=== PATIENT | female | born 1955 | race Caucasian/White ===

== ENCOUNTER → 2016-08-25 | Outpatient (CLI) | payer OTHER ==
[~2016-08-25] MED LIST: AMBIEN 5MG TABLE5 MG PO; AZO-CRANBERRY450 MG PO; BIOTIN5000 MCG PO; BUMEX; BUMEX 1MG TA1 MG/TA1 PO; BUMEX2 MG PO; CYMBALTA 60MG60 MG PO; FENTANYL 50MCG TD; FENTANYL 50MCG TP; FENTANYL37.5 MCG/H TD; FLAX OIL1000 MG PO; HIPREX PO; K DUR; K-DUR20 MEQ PO; LISINOPRIL2.5 MG PO; MASON NATURAL1200 MG PO; MOTRIN 800800 MG/TAB PO; PERCOCET 325 MG1 TAB PO; PERCOCET 5/321 UDTAB PO; PRINIVIL5 MG PO; SYNTHROID0.125 MG/T PO; TURMERIC500 MG PO; VALIUM 5MG T5 MG/TAB PO; VITAMIN C500 MG PO; ZETIA 10MG TAB10 MG PO; ZOCOR 40MG40 MG PO; ZOLOFT100 MG PO
== END ==
LOC: MHCPAIN 10:35
DX: G89.29 Other chronic pain (principal); M47.27 Other spondylosis with radiculopathy, lumbosacral region; M53.3 Sacrococcygeal disorders, not elsewhere classified; M96.1 Postlaminectomy syndrome, not elsewhere classified; M54.2 Cervicalgia; F11.20 Opioid dependence, uncomplicated
CPT/HCPCS: G0463

== ENCOUNTER → 2016-09-07 | Outpatient (CLI) | payer OTHER | LOC: MHCPAIN 08:03 | DX: M51.36 Other intervertebral disc degeneration, lumbar region (principal); M96.1 Postlaminectomy syndrome, not elsewhere classified | CPT/HCPCS: J1100; Q9967 ==

== ENCOUNTER 2016-09-11 08:19 | Outpatient (CLI) | payer OTHER ==
[~2016-09-11] VITALS: Ht 154.9 cm; Wt 98.7 kg
[~2016-09-11 08:19] MED LIST changes: -AMBIEN 5MG TABLE5 MG PO; -AZO-CRANBERRY450 MG PO; -BIOTIN5000 MCG PO; -BUMEX 1MG TA1 MG/TA1 PO; -BUMEX2 MG PO; -CYMBALTA 60MG60 MG PO; -FENTANYL 50MCG TD; -FENTANYL37.5 MCG/H TD; -FLAX OIL1000 MG PO; -HIPREX PO; -K-DUR20 MEQ PO; -MASON NATURAL1200 MG PO; -PERCOCET 325 MG1 TAB PO; -PRINIVIL5 MG PO; -TURMERIC500 MG PO; -VITAMIN C500 MG PO; -ZETIA 10MG TAB10 MG PO; -ZOCOR 40MG40 MG PO
[2016-09-11] MEDS ORDERED: PRINIVIL5 MG PO (08:34)
[2016-09-11] MEDS ORDERED: BUMEX 1MG TA1 MG/TA1 PO (08:35)
[2016-09-11] MEDS ORDERED: BUMEX2 MG PO (08:36)
[2016-09-11] MEDS ORDERED: K-DUR20 MEQ PO ×2 (08:36→08:37)
[2016-09-11] MEDS ORDERED: ZETIA 10MG TAB10 MG PO (08:37)
[2016-09-11] MEDS ORDERED: ZOCOR 40MG40 MG PO (08:38)
[2016-09-11] MEDS ORDERED: HIPREX PO (08:39)
[2016-09-11] MEDS ORDERED: FENTANYL 50MCG TD (08:39)
[2016-09-11] MEDS ORDERED: CYMBALTA 60MG60 MG PO (08:40)
[2016-09-11] MEDS ORDERED: AMBIEN 5MG TABLE5 MG PO (08:41)
[2016-09-11] MEDS ORDERED: PERCOCET 325 MG1 TAB PO (08:41)
[2016-09-11] MEDS ORDERED: VITAMIN C500 MG PO (08:42)
[2016-09-11] MEDS ORDERED: AZO-CRANBERRY450 MG PO (08:42)
[2016-09-11] MEDS ORDERED: FLAX OIL1000 MG PO (08:43)
[2016-09-11] MEDS ORDERED: MASON NATURAL1200 MG PO (08:43)
[2016-09-11] MEDS ORDERED: TURMERIC500 MG PO (08:44)
[2016-09-11 08:45] VITALS: BP 144/89; PULSE 73
[2016-09-11] MEDS ORDERED: BIOTIN5000 MCG PO (08:45)
[2016-09-11 10:06] VITALS: BP 130/45; PULSE 83
[2016-09-11 10:20] VITALS: BP 135/73; PULSE 69
[2016-09-11 11:00] VITALS: BP 127/70; PULSE 78
[2016-09-11 11:30] VITALS: BP 129/70; PULSE 90
[2016-09-11 11:44] VITALS: BP 135/68; PULSE 78
== END 2016-09-11 12:12 | disposition home or self-care (01) ==
LOC: COL.RAD 08:19
DX: M96.1 Postlaminectomy syndrome, not elsewhere classified (principal); M54.2 Cervicalgia; M54.6 Pain in thoracic spine; I25.10 Atherosclerotic heart disease of native coronary artery without angina pectoris; I10 Essential (primary) hypertension; E78.5 Hyperlipidemia, unspecified; Z79.899 Other long term (current) drug therapy; Z79.82 Long term (current) use of aspirin
CPT/HCPCS: Q9967

== ENCOUNTER 2016-09-26 08:32 | Outpatient (CLI) | payer OTHER ==
[~2016-09-26] VITALS: Ht 154.9 cm; Wt 97.9 kg
[2016-09-26] VITALS (8 sets, daily range): BP systolic 101–132; BP diastolic 50–79; PULSE 58–78
[~2016-09-26 08:32] MED LIST changes: +AMBIEN 5MG TABLE5 MG PO; +AZO-CRANBERRY450 MG PO; +BIOTIN5000 MCG PO; +BUMEX 1MG TA1 MG/TA1 PO; +BUMEX2 MG PO; +CYMBALTA 60MG60 MG PO; +FENTANYL 50MCG TD; +FLAX OIL1000 MG PO; +HIPREX PO; +K-DUR20 MEQ PO; +MASON NATURAL1200 MG PO; +PERCOCET 325 MG1 TAB PO; +PRINIVIL5 MG PO; +TURMERIC500 MG PO; +VITAMIN C500 MG PO; +ZETIA 10MG TAB10 MG PO; +ZOCOR 40MG40 MG PO
[2016-09-26] MEDS ORDERED: FENTANYL37.5 MCG/H TD (08:48)
== END 2016-09-26 11:32 | disposition home or self-care (01) ==
LOC: COL.RAD 08:32
DX: M96.1 Postlaminectomy syndrome, not elsewhere classified (principal); M54.2 Cervicalgia; M48.06 Spinal stenosis, lumbar region
CPT/HCPCS: Q9965

== ENCOUNTER → 2016-10-02 | Outpatient (CLI) | payer OTHER ==
[~2016-10-02] MED LIST changes: +FENTANYL37.5 MCG/H TD
== END ==
LOC: MHCPAIN 12:26
DX: G89.29 Other chronic pain (principal); M47.817 Spondylosis without myelopathy or radiculopathy, lumbosacral region; M54.16 Radiculopathy, lumbar region; M53.3 Sacrococcygeal disorders, not elsewhere classified; M50.90 Cervical disc disorder, unspecified, unspecified cervical region; M96.1 Postlaminectomy syndrome, not elsewhere classified
CPT/HCPCS: G0463

== ENCOUNTER → 2016-11-03 | Outpatient (CLI) | payer OTHER | LOC: MHCPAIN 12:30 | DX: G89.29 Other chronic pain (principal); M47.817 Spondylosis without myelopathy or radiculopathy, lumbosacral region; M54.16 Radiculopathy, lumbar region; M53.3 Sacrococcygeal disorders, not elsewhere classified; M96.1 Postlaminectomy syndrome, not elsewhere classified | CPT/HCPCS: G0463 ==

== ENCOUNTER 2016-11-24 16:45 | Outpatient (RCR) | payer OTHER | END 2016-11-30 13:55 | disposition home or self-care (01) | LOC: WSPT 16:45 | DX: M47.27 Other spondylosis with radiculopathy, lumbosacral region (principal); M53.3 Sacrococcygeal disorders, not elsewhere classified; M96.1 Postlaminectomy syndrome, not elsewhere classified; M51.16 Intervertebral disc disorders with radiculopathy, lumbar region ==

== ENCOUNTER → 2016-12-04 | Outpatient (CLI) | payer OTHER | LOC: MHCPAIN 10:50 | DX: G89.29 Other chronic pain (principal); M47.817 Spondylosis without myelopathy or radiculopathy, lumbosacral region; M54.16 Radiculopathy, lumbar region; M53.3 Sacrococcygeal disorders, not elsewhere classified; M96.1 Postlaminectomy syndrome, not elsewhere classified | CPT/HCPCS: G0463 ==

== ENCOUNTER → 2017-01-08 | Outpatient (CLI) | payer OTHER | LOC: MHCPAIN 11:11 | DX: G89.29 Other chronic pain (principal); M47.27 Other spondylosis with radiculopathy, lumbosacral region; M53.3 Sacrococcygeal disorders, not elsewhere classified; M96.1 Postlaminectomy syndrome, not elsewhere classified; Z79.82 Long term (current) use of aspirin | CPT/HCPCS: G0463 ==

== ENCOUNTER → 2017-02-12 | Outpatient (CLI) | payer OTHER | LOC: MHCPAIN 11:31 | DX: G89.29 Other chronic pain (principal); M47.27 Other spondylosis with radiculopathy, lumbosacral region; M53.3 Sacrococcygeal disorders, not elsewhere classified; M96.1 Postlaminectomy syndrome, not elsewhere classified; Z79.82 Long term (current) use of aspirin | CPT/HCPCS: G0463 ==

== ENCOUNTER → 2017-02-28 | Outpatient (REF) | LOC: ZLAB.WCH 18:11 | DX: Z12.31 Encounter for screening mammogram for malignant neoplasm of breast (principal) ==

== ENCOUNTER → 2017-03-12 | Outpatient (REF) ==
[2017-03-12 18:52] LABS: C-REACTIVE PROTEIN 1.4 mg/dL (0.0-0.9)
[2017-03-12 18:55] LABS: VANCOMYCIN TROUGH 17.14 ug/mL (7.00-20.00)
== END ==
LOC: ZLAB.WCH 18:31
PROVIDERS: Internal Medicine Infectious Disease
DX: Z01.89 Encounter for other specified special examinations (principal)

== ENCOUNTER → 2017-03-12 | Outpatient (CLI) | payer OTHER | LOC: MHCPAIN 13:03 | DX: G89.29 Other chronic pain (principal); M47.27 Other spondylosis with radiculopathy, lumbosacral region; M96.1 Postlaminectomy syndrome, not elsewhere classified | CPT/HCPCS: G0463 ==

== ENCOUNTER → 2017-03-15 | Outpatient (REF) ==
[2017-03-15 18:35] LABS: C-REACTIVE PROTEIN 3.2 mg/dL (0.0-0.9)
[2017-03-15 18:38] LABS: VANCOMYCIN TROUGH 15.71 ug/mL (7.00-20.00)
== END ==
LOC: ZLAB.WCH 18:09
PROVIDERS: Internal Medicine Infectious Disease
DX: Z01.89 Encounter for other specified special examinations (principal)

== ENCOUNTER → 2017-03-19 | Outpatient (REF) ==
[2017-03-19 18:56] LABS: C-REACTIVE PROTEIN 4.1 mg/dL (0.0-0.9)
[2017-03-19 19:31] LABS: VANCOMYCIN TROUGH 21.15 ug/mL (7.00-20.00)
== END ==
LOC: ZLAB.WCH 18:16
PROVIDERS: Internal Medicine Infectious Disease
DX: Z01.89 Encounter for other specified special examinations (principal)

== ENCOUNTER → 2017-03-26 | Outpatient (REF) ==
[2017-03-26 17:46] LABS: VANCOMYCIN TROUGH 14.51 ug/mL (7.00-20.00)
[2017-03-26 17:48] LABS: C-REACTIVE PROTEIN 0.5 mg/dL (0.0-0.9)
== END ==
LOC: ZLAB.WCH 17:28
PROVIDERS: Internal Medicine Infectious Disease
DX: Z01.89 Encounter for other specified special examinations (principal)

== ENCOUNTER → 2017-04-02 | Outpatient (REF) ==
[2017-04-02 18:59] LABS: C-REACTIVE PROTEIN 0.7 mg/dL (0.0-0.9)
[2017-04-02 19:19] LABS: VANCOMYCIN TROUGH 21.74 ug/mL (7.00-20.00)
== END ==
LOC: ZLAB.WCH 18:20
PROVIDERS: Internal Medicine Infectious Disease
DX: Z01.89 Encounter for other specified special examinations (principal)

== ENCOUNTER → 2017-04-04 | Outpatient (REF) | LOC: ZLAB.WCH 18:08 | DX: Z01.89 Encounter for other specified special examinations (principal) ==

== ENCOUNTER → 2017-04-09 | Outpatient (REF) ==
[2017-04-09 14:51] LABS: VANCOMYCIN TROUGH 17.64 ug/mL (7.00-20.00)
[2017-04-09 14:53] LABS: C-REACTIVE PROTEIN < 0.5 mg/dL (0.0-0.9)
== END ==
LOC: ZLAB.WCH 14:27
PROVIDERS: Internal Medicine Infectious Disease
DX: Z01.89 Encounter for other specified special examinations (principal)

== ENCOUNTER → 2017-04-11 | Outpatient (CLI) | payer OTHER | LOC: MHCPAIN 12:52 | DX: G89.29 Other chronic pain (principal); M47.27 Other spondylosis with radiculopathy, lumbosacral region; M53.3 Sacrococcygeal disorders, not elsewhere classified; M96.1 Postlaminectomy syndrome, not elsewhere classified | CPT/HCPCS: G0463 ==

== ENCOUNTER → 2017-04-16 | Outpatient (REF) ==
[2017-04-16 16:06] LABS: C-REACTIVE PROTEIN < 0.5 mg/dL (0.0-0.9)
[2017-04-16 16:08] LABS: VANCOMYCIN TROUGH 16.81 ug/mL (7.00-20.00)
== END ==
LOC: ZLAB.WCH 15:19
PROVIDERS: Internal Medicine Infectious Disease
DX: Z01.89 Encounter for other specified special examinations (principal)

== ENCOUNTER → 2017-04-24 | Outpatient (REF) ==
[2017-04-24 19:02] LABS: VANCOMYCIN TROUGH 18.31 ug/mL (7.00-20.00)
[2017-04-24 19:34] LABS: C-REACTIVE PROTEIN < 0.5 mg/dL (0.0-0.9)
== END ==
LOC: ZLAB.WCH 18:12
PROVIDERS: Internal Medicine Infectious Disease
DX: Z01.89 Encounter for other specified special examinations (principal)

== ENCOUNTER → 2017-05-21 | Outpatient (CLI) | payer OTHER | LOC: MHCPAIN 11:56 | DX: G89.29 Other chronic pain (principal); M47.27 Other spondylosis with radiculopathy, lumbosacral region; M53.3 Sacrococcygeal disorders, not elsewhere classified; M96.1 Postlaminectomy syndrome, not elsewhere classified | CPT/HCPCS: G0463 ==

== ENCOUNTER → 2017-06-20 | Outpatient (CLI) | payer OTHER | LOC: MHCPAIN 14:55 | DX: G89.29 Other chronic pain (principal); M47.817 Spondylosis without myelopathy or radiculopathy, lumbosacral region; M54.16 Radiculopathy, lumbar region; M53.3 Sacrococcygeal disorders, not elsewhere classified; M96.1 Postlaminectomy syndrome, not elsewhere classified | CPT/HCPCS: G0463 ==

== ENCOUNTER → 2017-08-20 | Outpatient (CLI) | payer OTHER | LOC: MHCPAIN 14:49 | DX: G89.29 Other chronic pain (principal); M47.817 Spondylosis without myelopathy or radiculopathy, lumbosacral region; M54.16 Radiculopathy, lumbar region; M53.3 Sacrococcygeal disorders, not elsewhere classified; M96.1 Postlaminectomy syndrome, not elsewhere classified | CPT/HCPCS: G0463 ==

== ENCOUNTER → 2018-02-20 | Outpatient (CLI) | payer OTHER | LOC: MHCPAIN 15:18 | DX: G89.29 Other chronic pain (principal); M47.817 Spondylosis without myelopathy or radiculopathy, lumbosacral region; M54.16 Radiculopathy, lumbar region; M53.3 Sacrococcygeal disorders, not elsewhere classified; M96.1 Postlaminectomy syndrome, not elsewhere classified | CPT/HCPCS: G0463 ==

== ENCOUNTER → 2018-04-02 | Outpatient (CLI) | payer OTHER | LOC: MHCPAIN 10:11 | DX: G89.29 Other chronic pain (principal); M47.817 Spondylosis without myelopathy or radiculopathy, lumbosacral region; M54.16 Radiculopathy, lumbar region; M53.3 Sacrococcygeal disorders, not elsewhere classified; M96.1 Postlaminectomy syndrome, not elsewhere classified | CPT/HCPCS: G0463 ==

== ENCOUNTER → 2018-04-09 | Outpatient (CLI) | payer OTHER | LOC: MHCPAIN 14:00 | DX: M79.18 Myalgia, other site (principal) | CPT/HCPCS: J1040 ==

== ENCOUNTER → 2018-05-22 | Outpatient (CLI) | payer OTHER | LOC: MHCPAIN 15:25 | DX: G89.29 Other chronic pain (principal); M47.817 Spondylosis without myelopathy or radiculopathy, lumbosacral region; M54.16 Radiculopathy, lumbar region; M53.3 Sacrococcygeal disorders, not elsewhere classified; M96.1 Postlaminectomy syndrome, not elsewhere classified | CPT/HCPCS: G0463 ==

== ENCOUNTER → 2018-08-28 | Outpatient (CLI) | payer OTHER | LOC: MHCPAIN 13:57 | DX: G89.29 Other chronic pain (principal); M47.817 Spondylosis without myelopathy or radiculopathy, lumbosacral region; M54.16 Radiculopathy, lumbar region; M53.3 Sacrococcygeal disorders, not elsewhere classified; M96.1 Postlaminectomy syndrome, not elsewhere classified | CPT/HCPCS: G0463 ==

== ENCOUNTER → 2018-11-26 | Outpatient (CLI) | payer OTHER | LOC: MHCPAIN 15:25 | DX: G89.29 Other chronic pain (principal); M47.817 Spondylosis without myelopathy or radiculopathy, lumbosacral region; M54.16 Radiculopathy, lumbar region; M53.3 Sacrococcygeal disorders, not elsewhere classified; M96.1 Postlaminectomy syndrome, not elsewhere classified | CPT/HCPCS: G0463 ==

== ENCOUNTER → 2019-02-18 | Outpatient (CLI) | payer OTHER, MEDICARE | LOC: MHCPAIN 15:39 | DX: G89.29 Other chronic pain (principal); M47.817 Spondylosis without myelopathy or radiculopathy, lumbosacral region; M54.16 Radiculopathy, lumbar region; M53.3 Sacrococcygeal disorders, not elsewhere classified; M96.1 Postlaminectomy syndrome, not elsewhere classified | CPT/HCPCS: G0463 ==

== ENCOUNTER → 2019-05-28 | Outpatient (CLI) | payer MEDICARE | LOC: MHCPAIN 13:29 | DX: M47.817 Spondylosis without myelopathy or radiculopathy, lumbosacral region (principal); M54.16 Radiculopathy, lumbar region | CPT/HCPCS: G0463 ==

== ENCOUNTER → 2019-05-29 | Outpatient (CLI) | payer MEDICARE | LOC: MHCPAIN 14:27 | DX: M96.1 Postlaminectomy syndrome, not elsewhere classified (principal); M54.17 Radiculopathy, lumbosacral region | CPT/HCPCS: J1100; Q9967 ==

== ENCOUNTER → 2019-07-03 | Outpatient (CLI) | payer OTHER | LOC: MHCPAIN 15:01 | DX: M99.04 Segmental and somatic dysfunction of sacral region (principal) | CPT/HCPCS: G0260; J1040; Q9967 ==

== ENCOUNTER → 2019-10-01 | Outpatient (CLI) | payer MEDICARE | LOC: MHCPAIN 13:56 | DX: M47.817 Spondylosis without myelopathy or radiculopathy, lumbosacral region (principal); M53.3 Sacrococcygeal disorders, not elsewhere classified; M54.5 Low back pain; M96.1 Postlaminectomy syndrome, not elsewhere classified; G89.29 Other chronic pain | CPT/HCPCS: G0463 ==

== ENCOUNTER → 2020-01-20 | Outpatient (CLI) | payer MEDICARE | LOC: MHCPAIN 14:41 | DX: M47.817 Spondylosis without myelopathy or radiculopathy, lumbosacral region (principal); M54.5 Low back pain; M96.1 Postlaminectomy syndrome, not elsewhere classified; M53.3 Sacrococcygeal disorders, not elsewhere classified; M54.16 Radiculopathy, lumbar region | CPT/HCPCS: G0463 ==

== ENCOUNTER → 2020-01-29 | Outpatient (CLI) | payer MEDICARE | LOC: MHCPAIN 13:23 | DX: M47.817 Spondylosis without myelopathy or radiculopathy, lumbosacral region (principal); M96.1 Postlaminectomy syndrome, not elsewhere classified; M54.16 Radiculopathy, lumbar region | CPT/HCPCS: J1100; Q9967 ==

== ENCOUNTER → 2020-04-14 | Outpatient (CLI) | payer MEDICARE | LOC: MHCPAIN 15:05 | DX: M47.817 Spondylosis without myelopathy or radiculopathy, lumbosacral region (principal); M54.5 Low back pain; M53.3 Sacrococcygeal disorders, not elsewhere classified; M96.1 Postlaminectomy syndrome, not elsewhere classified | CPT/HCPCS: G0463 ==

== ENCOUNTER → 2020-07-07 | Outpatient (CLI) | payer MEDICARE | LOC: MHCPAIN 14:38 | DX: M47.816 Spondylosis without myelopathy or radiculopathy, lumbar region (principal); M96.1 Postlaminectomy syndrome, not elsewhere classified; M53.3 Sacrococcygeal disorders, not elsewhere classified; G89.29 Other chronic pain | CPT/HCPCS: G0463 ==

== ENCOUNTER → 2020-09-29 | Outpatient (CLI) | payer MEDICARE | LOC: MHCPAIN 15:06 | DX: M47.817 Spondylosis without myelopathy or radiculopathy, lumbosacral region (principal); M54.5 Low back pain; M53.3 Sacrococcygeal disorders, not elsewhere classified; M96.1 Postlaminectomy syndrome, not elsewhere classified | CPT/HCPCS: G0463 ==

== ENCOUNTER → 2020-10-25 | Outpatient (CLI) | payer MEDICARE | LOC: MHCPAIN 10-21 11:01 | DX: M47.817 Spondylosis without myelopathy or radiculopathy, lumbosacral region (principal); M96.1 Postlaminectomy syndrome, not elsewhere classified; M54.16 Radiculopathy, lumbar region | CPT/HCPCS: J1100; Q9967 ==

== ENCOUNTER → 2021-01-05 | Outpatient (CLI) | payer MEDICARE | LOC: MHCPAIN 14:46 | DX: M47.816 Spondylosis without myelopathy or radiculopathy, lumbar region (principal); M96.1 Postlaminectomy syndrome, not elsewhere classified; M54.5 Low back pain; M53.3 Sacrococcygeal disorders, not elsewhere classified | CPT/HCPCS: G0463 ==

== ENCOUNTER → 2021-04-06 | Outpatient (CLI) | payer MEDICARE | LOC: MHCPAIN 15:05 | DX: M47.896 Other spondylosis, lumbar region (principal); M53.3 Sacrococcygeal disorders, not elsewhere classified; M96.1 Postlaminectomy syndrome, not elsewhere classified | CPT/HCPCS: G0463 ==

== ENCOUNTER → 2021-05-26 | Outpatient (CLI) | payer MEDICARE | LOC: MHCPAIN 10:59 | DX: M54.50 Low back pain, unspecified (principal); M47.817 Spondylosis without myelopathy or radiculopathy, lumbosacral region; M96.1 Postlaminectomy syndrome, not elsewhere classified; M53.3 Sacrococcygeal disorders, not elsewhere classified | CPT/HCPCS: G0260; G0463; J1040; Q9967 ==

== ENCOUNTER → 2021-06-29 | Outpatient (CLI) | payer MEDICARE | LOC: MHCPAIN 15:03 | DX: M54.50 Low back pain, unspecified (principal); M96.1 Postlaminectomy syndrome, not elsewhere classified; M47.896 Other spondylosis, lumbar region; M53.3 Sacrococcygeal disorders, not elsewhere classified | CPT/HCPCS: G0463 ==

== ENCOUNTER → 2021-10-05 | Outpatient (CLI) | payer MEDICARE | LOC: MHCPAIN 05-25 09:16 | DX: M47.896 Other spondylosis, lumbar region (principal); M53.3 Sacrococcygeal disorders, not elsewhere classified; M96.1 Postlaminectomy syndrome, not elsewhere classified; G89.29 Other chronic pain | CPT/HCPCS: G0463 ==

== ENCOUNTER → 2021-11-23 | Outpatient (CLI) | payer MEDICARE | LOC: COL.RAD 10:47 | DX: M47.896 Other spondylosis, lumbar region (principal); M41.86 Other forms of scoliosis, lumbar region; M41.84 Other forms of scoliosis, thoracic region; Z98.1 Arthrodesis status ==

== ENCOUNTER → 2021-11-23 | Outpatient (CLI) | payer MEDICARE | LOC: MHCPAIN 10:02 | DX: M47.817 Spondylosis without myelopathy or radiculopathy, lumbosacral region (principal); M53.3 Sacrococcygeal disorders, not elsewhere classified; G89.29 Other chronic pain | CPT/HCPCS: G0463 ==

== ENCOUNTER → 2021-11-28 | Outpatient (CLI) | payer MEDICARE | LOC: MHCPAIN 13:44 | DX: M53.3 Sacrococcygeal disorders, not elsewhere classified (principal); M47.817 Spondylosis without myelopathy or radiculopathy, lumbosacral region | CPT/HCPCS: G0260; J1040; Q9967 ==

== ENCOUNTER → 2022-07-26 | Outpatient (CLI) | payer MEDICARE ==
[~2022-07-26] MED LIST changes: +ASPIRIN 32325 MG/TAB PO; +FOLIC ACID 11 MG/TA1 PO; +GNC L-ARGININE500 MG PO; +METHOTREXATE50/2 INJ; +PERCOCET 325 MG1 TA3 PO; +PRINIVIL20 MG PO; -PRINIVIL5 MG PO; +ZANAFLEX CAPSULE2 MG PO; +ZYRTEC 10MG10 MG PO
== END ==
LOC: MHCPAIN 14:33
DX: M54.50 Low back pain, unspecified (principal); M53.3 Sacrococcygeal disorders, not elsewhere classified; M96.1 Postlaminectomy syndrome, not elsewhere classified; M46.1 Sacroiliitis, not elsewhere classified
CPT/HCPCS: G0463

== ENCOUNTER → 2022-08-24 | Outpatient (CLI) | payer MEDICARE | LOC: MHCPAIN 09:45 | DX: M47.898 Other spondylosis, sacral and sacrococcygeal region (principal); M53.3 Sacrococcygeal disorders, not elsewhere classified; M54.50 Low back pain, unspecified | CPT/HCPCS: G0260; J1040; Q9967 ==

== ENCOUNTER → 2023-02-21 | Outpatient (CLI) | payer MEDICARE | LOC: MHCPAIN 12:57 | DX: M48.02 Spinal stenosis, cervical region (principal); M96.1 Postlaminectomy syndrome, not elsewhere classified; M47.896 Other spondylosis, lumbar region; M54.17 Radiculopathy, lumbosacral region | CPT/HCPCS: G0463 ==

== ENCOUNTER → 2023-05-16 | Outpatient (CLI) | payer MEDICARE | LOC: MHCPAIN 13:50 | DX: M47.896 Other spondylosis, lumbar region (principal); M96.1 Postlaminectomy syndrome, not elsewhere classified | CPT/HCPCS: G0463 ==

== ENCOUNTER → 2023-07-18 | Outpatient (CLI) | payer MEDICARE | LOC: MHCPAIN 13:24 | DX: M48.061 Spinal stenosis, lumbar region without neurogenic claudication (principal); M96.1 Postlaminectomy syndrome, not elsewhere classified; M47.896 Other spondylosis, lumbar region | CPT/HCPCS: G0463 ==

== ENCOUNTER → 2023-08-16 | Outpatient (CLI) | payer MEDICARE ==
[~2023-08-16] MED LIST changes: +Iohexol 300 - 10 ML VIAL ONE
== END ==
LOC: MHCPAIN 13:16
DX: M46.1 Sacroiliitis, not elsewhere classified (principal); M53.3 Sacrococcygeal disorders, not elsewhere classified; M54.50 Low back pain, unspecified
CPT/HCPCS: G0260; J0665; J1010; Q9967

== ENCOUNTER → 2023-12-05 | Outpatient (CLI) | payer MEDICARE ==
[~2023-12-05] MED LIST changes: -Iohexol 300 - 10 ML VIAL ONE
== END ==
LOC: MHCPAIN 12:53
DX: M47.816 Spondylosis without myelopathy or radiculopathy, lumbar region (principal); M48.061 Spinal stenosis, lumbar region without neurogenic claudication; M41.86 Other forms of scoliosis, lumbar region
CPT/HCPCS: G0463